=== PATIENT | female | born 1995 | race African-American/Black ===

== ENCOUNTER 2019-05-09 03:30 | Emergency (ER) | payer MEDICAID ==
[~2019-05-09] VITALS: Ht 165.1 cm; Wt 113.4 kg
--- NOTE | 2019-05-09 03:49 | NUR ---
PT BIB SELF. AAOX4. PT C/O COUGH X1 WEEK AND SOB WITH CONGESTION X2 DAYS. PER PATIENT "MY CHEST FEELS TIGHT." PT PLACED ON MONITOR AND PULSE OX. NO ACUTE DISTRESS NOTED.
[2019-05-09] MEDS ORDERED: ALBUTEROL FS 2.5 MG/0.5 ML VIAL.NEB ONE (03:50)
[2019-05-09] MEDS ORDERED: ALBUTEROL FS 2.5 MG/0.5 ML VIAL.NEB NEB ONE (04:00)
--- NOTE | 2019-05-09 04:12 | NUR ---
Patient is resting comfortably in bed. Easily aroused. VSS.
--- NOTE | 2019-05-09 04:17 | NUR ---
Patient discharged to home in stable condition. Written and verbal after care instructions given. Patient verbalizes understanding of instruction. PT ambulatory with a steady gait.
[2019-05-09 04:18] VITALS: BP 136/76
== END 2019-05-09 04:23 | disposition home or self-care (01) ==
LOC: ER 03:38
DX: J06.9 Acute upper respiratory infection, unspecified (principal); J45.909 Unspecified asthma, uncomplicated; Z88.0 Allergy status to penicillin
CPT/HCPCS: 71045-TC